=== PATIENT | female | born 1975 | race Caucasian/White ===

== ENCOUNTER 2023-03-27 22:12 | Observation (INO) | payer OTHER ==
[~2023-03-27] VITALS: Ht 160 cm; Wt 74.2 kg
[2023-03-28] VITALS (9 sets, daily range): BP systolic 101–121; BP diastolic 64–73; PULSE 67–80; TEMP 97.5–98.5
[2023-03-28 00:22] LABS: BASO % 0.3 % (0.0-2.0); EOS # 0.1 K/mm3 (0.0-0.7); GRAN # 6.6 K/mm3 (1.4-6.5); GRAN % 73.7 % (42.2-75.2); HEMATOCRIT 38.4 % (37.0-47.0); HEMOGLOBIN 12.5 g/dl (12.5-16.0); LYMPH # 1.2 K/mm3 (1.2-3.4); LYMPH % 13.6 % (20.0-51.0); MEAN CELL VOLUME 89 fl (80.0-100.0); MEAN CORPUSCULAR HEMOGLOBIN 29 pg (27-31); MEAN CORPUSCULAR HGB CONC 33 g/dl (33.0-37.0); MEAN PLATELET VOLUME 9.5 fl (7.4-10.4); MONO # 0.9 K/mm3 (0.1-0.6); MONO % 10.6 % (1.7-9.3); PLATELET COUNT 283 K/mm3 (130-400); REDCELL DISTRIBUTION WIDTH-CV 13.3 % (11.5-14.5)
[2023-03-28 00:38] LABS: ALBUMIN 3.2 gm/dL (3.5-5.0); CALCIUM 8.8 mg/dL (8.4-10.2); CREATININE, serum 1.15 mg/dL (0.57-1.11); TOTAL PROTEIN 6.9 gm/dL (6.2-8.1)
[2023-03-28 00:51] LABS: BILIRUBIN,TOTAL 0.3 mg/dL (0.2-1.2)
[2023-03-28] MEDS ORDERED: CELEXA 20MG20 MG/TAB PO (02:30)
[2023-03-28] MEDS ORDERED: SYNTHROID0.112 MG/T PO (02:30)
[2023-03-28] MEDS ORDERED: MULTI-VITAMIN W1 TA1 PO (03:06)
[2023-03-28] MEDS ORDERED: OMEGA-3 1000 MG1 CAP PO (03:08)
[2023-03-28] MEDS ORDERED: ZINC SULFATE 1566 MG PO (03:09)
--- NOTE | 2023-03-28 05:05 | NUR ---
PT ARRIVED TO THE MEDICAL FLOOR AROUND 0245HRS TO ROOM 315. PT A&O X 4, VSS WITH SOFT B/P; O2 RA. PT DENIED GENERAL PAIN, CHEST PAIN, PALPITATIONS, SOB, N,V,D OR DIZZINESS. ADMISSIONS ASSESSMENT AND MED REC COMPLETE. PT ORIENTED TO ROOM AND HOSPITAL POLICY. ALL QUESTIONS AND CONCERNS ADDRESSED. PT EXPRESSED NO ADDITIONAL NEEDS AT THIS TIME. CALL LIGHT WITHIN REACH.
--- NOTE | 2023-03-28 09:48 | NUR ---
Patient is resting in bed, alert and orineted x 4, cant speak loud, getting fluids per orders, denies any SOB, eating well. Assessment completed, meds given. No further needs at this time. Call light within reach.
--- NOTE | 2023-03-28 10:12 | NUR ---
Initial visit; Patient thanked [employer] for offering prayer and God's healing for her fever and cough. Patient appears to be quite ill but still tries to be very kind and friendly.
--- NOTE | 2023-03-28 20:15 | NUR ---
PT FORCING UPPER AIRWAY WHEEZING
[2023-03-29] VITALS (12 sets, daily range): BP systolic 92–131; BP diastolic 58–82; PULSE 74–94; TEMP 97.6–99.6
--- NOTE | 2023-03-29 00:42 | NUR ---
patient lying in bed alert and oriented x4. pt denies chest pain and shortness of breath. at bedside assist with pt linens bed change and CHG wipe body clean.2009- KATIE Cuellar notified of pt request for melatonin, order given. no remarkable skin findings noted. pt having some visible chills, temperature 98.1, warm blankets and hot cocoa provided, upon reassessment chills gone. tylenol given per request for soreness on sides from coughing. IVs in RAC and LAC are patent, sites clean dry and intact. pt has no further needs, questions or concerns. call light within reach. will continue to monitor.
--- NOTE | 2023-03-29 08:20 | NUR ---
SOP2 ON RA 97%, NPC, COURSE T/O, SOUNDS MUCH BETTER TODAY, CELIA RT TX WELL .
--- NOTE | 2023-03-29 08:47 | NUR ---
Patient is sitting up in bed, alert and oriented x 4, getting her breakfast. States she feels better, she can speak louder. At RA. Assessment completed, meds given. No further needs at this time. Call light within reach.
[2023-03-29 13:31] LABS: HEMATOCRIT 38.8 % (37.0-47.0); HEMOGLOBIN 12.1 g/dl (12.5-16.0); MEAN CELL VOLUME 93 fl (80.0-100.0); MEAN CORPUSCULAR HEMOGLOBIN 29 pg (27-31); MEAN CORPUSCULAR HGB CONC 31 g/dl (33.0-37.0); MEAN PLATELET VOLUME 9.7 fl (7.4-10.4); PLATELET COUNT 307 K/mm3 (130-400); RED BLOOD COUNT 4.19 M/mm3 (4.10-5.30)
--- NOTE | 2023-03-29 13:59 | NUR ---
[employer] met with patient to discuss discharge planning. Patient lives in [place], [place] and was here in [place] visiting her parents. Patient's , Symone is at bedside. Patient has a PCP in [place], Dr. Hernan Sauer and has no difficulties affording her prescriptions. Patient does not use DME and is independent with ADLS. Patient does not have DPOA-HC and was not interested in completing one at this time. Patient plans to return home at time of discharge. Discharge Plan: Home
--- NOTE | 2023-03-29 20:26 | NUR ---
patient lying in bed, alert and oriented x4. pt ambulating in halls with steady gati, denies chest pain and shortness of breath. no remarkable skin findings noted, IV in RAC is patent, site is clean dry and intact. per pt request, tylenol given for intermittent chills and slight increase of temperature of 99.1. pt has no further needs, questions, or concerns at this time. call light within reach. will continue to monitor.
[2023-03-30 00:24] VITALS: BP_SYST 92
[2023-03-30 02:56] VITALS: BP 104/71; PULSE 85; TEMP 98.4
[2023-03-30 04:10] VITALS: BP_SYST 104
[2023-03-30 07:25] LABS: HEMOGLOBIN 11.1 g/dl (12.5-16.0); MEAN CORPUSCULAR HEMOGLOBIN 29 pg (27-31); MEAN CORPUSCULAR HGB CONC 33 g/dl (33.0-37.0); MEAN PLATELET VOLUME 9.1 fl (7.4-10.4); PLATELET COUNT 296 K/mm3 (130-400); RED BLOOD COUNT 3.79 M/mm3 (4.10-5.30); REDCELL DISTRIBUTION WIDTH-CV 13.8 % (11.5-14.5)
[2023-03-30 07:29] LABS: ALBUMIN 2.5 gm/dL (3.5-5.0); CALCIUM 8.8 mg/dL (8.4-10.2); CREATININE, serum 0.77 mg/dL (0.57-1.11); HEMATOCRIT 33.4 % (37.0-47.0); MAGNESIUM 1.8 mg/dL (1.6-2.6); MEAN CELL VOLUME 88 fl (80.0-100.0)
[2023-03-30 08:08] LABS: BAND 6 % (0-10); EOSINOPHIL 2 % (0-4); LYMPHOCYTE 15 % (20.0-51.0); METAMYELOCYTE 1 % (0-0); NEUTROPHILS 65 % (42.0-75.2); PLATELET ESTIMATE NORMAL (NORMAL)
[2023-03-30 08:17] VITALS: BP 115/71; PULSE 84; TEMP 98
[2023-03-30] MEDS ORDERED: OMNICEF 300MG300 MG PO (08:50)
[2023-03-30] MEDS ORDERED: DOXYCYCLINE HY100 MG PO (08:50)
[2023-03-30] MEDS ORDERED: PROAIR HFA0.09 MG/AC IH (08:51)
[2023-03-30] MEDS ORDERED: PREDNISONE20 MG PO (08:51)
[2023-03-30] MEDS ORDERED: MUCUS RELIEF400 M1 PO (08:52)
--- NOTE | 2023-03-30 09:00 | NUR ---
Assessment completed. Pt sitting up in bed, finishing breakfast. Pt voice hoarse but able to speak full sentences. LS diminished but audiable wheezing in upper airway heard with deep breaths. On RA. Denies pain or needs at this time. Discharge orders rec'd. IV d/c'd to RAC.
[2023-03-30 10:00] VITALS: BP_SYST 115
--- NOTE | 2023-03-30 10:56 | NUR ---
Initial visit; Shonna and her company thanked for looking in on her and offering God's blessings and a get well wish. Shonna sitting up and appeared ready to go and in good spirits. wished her a Happy New Year.
--- NOTE | 2023-03-30 12:00 | NUR ---
Discharge instructions reviewed with patient- verbalizes understanding. Pt escorted to private vehicle and discharged home with .
== END 2023-03-30 12:00 | disposition home or self-care (01) ==
LOC: COL.ER 22:12 → MEDICAL 03-28 01:29
PROVIDERS: Internal Medicine; Nurse Practitioner Primary Care; ADMIT Internal Medicine
DX: A41.9 Sepsis, unspecified organism (principal); J18.9 Pneumonia, unspecified organism; E03.9 Hypothyroidism, unspecified; F41.9 Anxiety disorder, unspecified; F32.A Depression, unspecified; I07.1 Rheumatic tricuspid insufficiency; J04.0 Acute laryngitis; Z95.828 Presence of other vascular implants and grafts; Z79.899 Other long term (current) drug therapy
CPT/HCPCS: G0378; J0696; J1650; J1885; J7030; J7120